=== PATIENT | male | born 1960 | race Native Hawaiian/Other Pacific Islander ===

== ENCOUNTER 2020-08-10 09:32 | Inpatient (IN) | payer OTHER ==
[~2020-08-10] VITALS: Ht 175.3 cm; Wt 96.3 kg
[2020-08-10 10:58] LABS: PLATELET COUNT 460 K/uL (142-355)
[2020-08-10 11:19] LABS: PARTIAL THROMBOPLASTIN TIME 25.2 SECONDS (24.5-33.6)
[2020-08-10 11:21] LABS: POTASSIUM 2.8 mmol/L (3.6-5.2); SODIUM 134 mmol/L (136-145)
[2020-08-10 14:18] VITALS: BP 171/128; TEMP 98.3; Ht 175.3 cm; Wt 96.3 kg
[2020-08-10 16:00] VITALS: BP 142/91; TEMP 97.7
[2020-08-10 20:00] VITALS: BP 176/101; TEMP 98.5
[2020-08-11] VITALS: BP 172/102; TEMP 98.2
[2020-08-11 04:00] VITALS: BP 167/93; TEMP 98.2
[2020-08-11 07:23] LABS: POTASSIUM 3.7 mmol/L (3.6-5.2)
[2020-08-11 08:00] VITALS: BP 210/106; TEMP 97.9
[2020-08-11 10:24] LABS: PLATELET COUNT 360 K/uL (142-355)
[2020-08-11 12:00] VITALS: BP 148/82; TEMP 97.7
[2020-08-11 16:00] VITALS: BP 160/92; TEMP 97.2
[2020-08-11 20:00] VITALS: BP 165/91; TEMP 97.6
[2020-08-12] VITALS: BP 151/94; TEMP 98.5
[2020-08-12 04:00] VITALS: BP 161/91; TEMP 98.2
[2020-08-12 05:26] LABS: PLATELET COUNT 376 K/uL (142-355)
[2020-08-12 08:00] VITALS: TEMP 98.4
[2020-08-12 12:00] VITALS: BP 163/104; TEMP 98.7
[2020-08-12 16:00] VITALS: BP 163/104; TEMP 98.7
[2020-08-12 20:00] VITALS: BP 160/88; TEMP 98.1
[2020-08-13] VITALS: BP 161/98; TEMP 98.4
[2020-08-13 04:00] VITALS: BP 168/93; TEMP 98.3
[2020-08-13 05:49] LABS: PLATELET COUNT 350 K/uL (142-355)
[2020-08-13 05:52] LABS: POTASSIUM 3.3 mmol/L (3.6-5.2)
[2020-08-13 08:00] VITALS: BP 180/90; TEMP 98.2
[2020-08-13 12:00] VITALS: BP 151/94; TEMP 98
[2020-08-13 16:00] VITALS: BP 152/108; TEMP 97.6
[2020-08-13 20:00] VITALS: BP 153/97; TEMP 98.4
[2020-08-14 00:25] VITALS: BP 162/88; TEMP 98.6
[2020-08-14 04:00] VITALS: BP 157/94; TEMP 97.9
[2020-08-14 05:51] LABS: PLATELET COUNT 298 K/uL (142-355)
[2020-08-14 05:59] LABS: POTASSIUM 3.8 mmol/L (3.6-5.2)
[2020-08-14 08:00] VITALS: BP 168/98; TEMP 97.9
[2020-08-14 12:00] VITALS: BP 166/83; TEMP 98.6
[2020-08-14 16:00] VITALS: BP 131/96; TEMP 98.2
[2020-08-14 20:00] VITALS: BP 170/104; TEMP 97.8
[2020-08-15] VITALS: BP 179/101; TEMP 98.7
[2020-08-15 04:00] VITALS: BP 169/95; TEMP 98.6
[2020-08-15 05:32] LABS: POTASSIUM 3.9 mmol/L (3.6-5.2)
[2020-08-15 05:39] LABS: PLATELET COUNT 299 K/uL (142-355)
[2020-08-15 08:00] VITALS: BP 143/102; TEMP 97.8
[2020-08-15 12:00] VITALS: BP 155/92; TEMP 98.1
[2020-08-15 16:00] VITALS: BP 165/86; TEMP 98.3
== END 2020-08-15 22:06 | disposition home or self-care (01) | DRG 897 ==
LOC: MED/SURG 09:32
PROVIDERS: ADMIT Family Medicine
DX: F10.188 Alcohol abuse with other alcohol-induced disorder (principal); E44.0 Moderate protein-calorie malnutrition; E87.6 Hypokalemia; R41.82 Altered mental status, unspecified; M79.671 Pain in right foot; M79.672 Pain in left foot; M79.604 Pain in right leg; M79.605 Pain in left leg; I16.0 Hypertensive urgency; F41.1 Generalized anxiety disorder; R55 Syncope and collapse; R27.0 Ataxia, unspecified; D72.828 Other elevated white blood cell count; F41.8 Other specified anxiety disorders; J02.0 Streptococcal pharyngitis; R53.81 Other malaise; E86.0 Dehydration; G93.89 Other specified disorders of brain; G62.89 Other specified polyneuropathies
CPT/HCPCS: 36415; 80053; 80320; 81000; 82085; 82306; 82550; 82607; 82746; 82747; 83735; 84100; 84207; 84425; 84436; 84443; 84481; 84484; 84550; 85007; 85027; 85610; 85651; 85730; 86038; 86256; 87040; 87651; 93005; 96365; 96366; 96367; 96375; A9576; J0696; J1885; J2060; J2543; J2920; J3475; J3480

== ENCOUNTER 2020-08-29 10:27 | Emergency (ER) | payer OTHER ==
[~2020-08-29] VITALS: Ht 175.3 cm; Wt 96.2 kg
[2020-08-29 11:18] LABS: PLATELET COUNT 369 K/uL (142-355)
[2020-08-29 11:19] LABS: POTASSIUM 3.8 mmol/L (3.6-5.2)
[2020-08-29 15:00] VITALS: BP 138/81; TEMP 98.3
== END 2020-08-29 15:00 | disposition home or self-care (01) ==
LOC: ED 10:27
PROVIDERS: Emergency Medicine Emergency Medical Services
DX: R53.1 Weakness (principal)
CPT/HCPCS: 80053; 81000; 82607; 82746; 83690; 84443; 85027; 85651; 96374; 99284; J1100; Q9963

== ENCOUNTER 2020-09-11 16:33 | Outpatient (CLI) | payer OTHER ==
[2020-09-11 17:10] LABS: PLATELET COUNT 393 K/uL (142-355)
[2020-09-11 17:29] LABS: POTASSIUM 3.7 mmol/L (3.6-5.2)
== END 2020-09-11 20:50 | disposition home or self-care (01) ==
LOC: LABW 16:33
PROVIDERS: ATTEND Nurse Practitioner Family
DX: E87.6 Hypokalemia (principal)
CPT/HCPCS: 36415; 80053; 85027

== ENCOUNTER 2023-02-24 21:45 | Emergency (ER) | payer OTHER ==
[~2023-02-24] VITALS: Ht 175.3 cm; Wt 70.8 kg
[2023-02-24 22:08] LABS: PLATELET COUNT 297 K/uL (142-355)
[2023-02-24 22:14] LABS: POTASSIUM 3.2 mmol/L (3.6-5.2)
[2023-02-25 05:00] VITALS: BP 130/78; TEMP 98.7
[2023-02-25 06:02] LABS: PLATELET COUNT 270 K/uL (142-355)
[2023-02-25 06:35] LABS: POTASSIUM 4.1 mmol/L (3.6-5.2)
== END 2023-02-25 16:50 | disposition other institution (70) ==
LOC: ED 21:45
PROVIDERS: Emergency Medicine Emergency Medical Services
DX: R45.851 Suicidal ideations (principal); F10.129 Alcohol abuse with intoxication, unspecified; F17.210 Nicotine dependence, cigarettes, uncomplicated
CPT/HCPCS: 36415; 80048; 80053; 80307; 80320; 81002; 85027; 87635; 93005; 99285; U0003